=== PATIENT | female | born 1955 ===

== ENCOUNTER 2017-12-08 12:00 | Inpatient (IN) | payer OTHER ==
[~2017-12-08] VITALS: Ht 170.2 cm; Wt 81.6 kg
[2017-12-08] MEDS ORDERED: LASIX20 MG PO (14:13)
[2017-12-08] MEDS ORDERED: AVAPRO150 MG PO (14:13)
== END 2017-12-17 09:57 | disposition home or self-care (01) | DRG 331 ==
LOC: SURG 12-14 07:00 → O/R 12-14 07:16 → SURH 12-14 07:16 → SURG 12-14 12:00 → SURH 12-14 15:46
PROVIDERS: Colon & Rectal Surgery
PROC: 0DJD8ZZ Inspection of Lower Intestinal Tract, Via Natural or Artificial Opening Endoscopic (ICD-10-PCS; 2017-12-14)
PROC: 0DTN4ZZ Resection of Sigmoid Colon, Percutaneous Endoscopic Approach (ICD-10-PCS; principal; 2017-12-14 07:00)
DX: K57.32 Diverticulitis of large intestine without perforation or abscess without bleeding (principal); I11.9 Hypertensive heart disease without heart failure

== ENCOUNTER 2018-12-30 06:47 | Day surgery (SDC) | payer OTHER ==
[~2018-12-30 06:47] MED LIST: AVAPRO150 MG PO; LASIX20 MG PO
== END 2018-12-30 11:15 | disposition home or self-care (01) ==
LOC: AMB-ENDOS 06:47
DX: K57.32 Diverticulitis of large intestine without perforation or abscess without bleeding (principal); K64.1 Second degree hemorrhoids